=== PATIENT | female | born 1940 | race African-American/Black ===

== ENCOUNTER 2020-04-15 15:08 | Inpatient (IN) | payer BC ==
[~2020-04-15] VITALS: Ht 165.1 cm; Wt 54.1 kg
[2020-04-15 15:08] VITALS: BP 120/66
[2020-04-15] MEDS ORDERED: Dicyclomine HCl 10mg/5ml oral soln ORAL ONE (15:30)
[2020-04-15] MEDS ORDERED: Morphine Sulfate 2mg/ml Inj(IV/IM USE ONLY) IVP ONE (15:30)
[2020-04-15] MEDS ORDERED: Omnipaque-300 100ml vial INJ PRN (15:30)
[2020-04-15] MEDS ORDERED: Mylanta II UD 30ml ORAL ONE (15:30)
[2020-04-15] MEDS ORDERED: Lidocaine 2% Visc 15ml soln ORAL ONE (15:30)
[2020-04-15 16:22] LABS: BASOPHILS % (AUTO) 0.7 % (0.0-2.0); EOSINOPHILS % (AUTO) 0.8 % (0.0-3.0); HEMOGLOBIN 13.4 G/DL (12.0-16.0); LYMPHOCYTES % (AUTO) 13.4 % (20.0-45.0); MEAN CORPUSCULAR VOLUME 94 FL (80-99); MONOCYTES % (AUTO) 3.4 % (1.0-10.0); NEUTROPHILS % (AUTO) 81.8 % (45.0-75.0); PLATELET COUNT 194 K/UL (150-450); RED BLOOD COUNT 4.24 M/UL (4.20-5.40); RED CELL DISTRIBUTION WIDTH 12.1 % (11.6-14.8); WHITE BLOOD COUNT 13.6 K/UL (4.8-10.8)
[2020-04-15 16:41] LABS: ANION GAP 11 mmol/L (5-15); BLOOD UREA NITROGEN 25 mg/dL (7-18); CALCIUM 9.4 MG/DL (8.5-10.1); CARBON DIOXIDE 25 MMOL/L (21-32); CHLORIDE 101 MMOL/L (98-107); CREATININE 1.7 MG/DL (0.55-1.30); POTASSIUM 4.2 MMOL/L (3.5-5.1); SODIUM 137 MMOL/L (136-145)
[2020-04-15] MEDS ORDERED: AMLODIPINE BESYL5 MG ORAL (16:42)
[2020-04-15] MEDS ORDERED: JANUMET 50-5001 EACH ORAL (16:42)
[2020-04-15] MEDS ORDERED: CLOPIDOGREL75 MG ORAL (16:42)
[2020-04-15] MEDS ORDERED: SIMVASTATIN20 MG ORAL (16:42)
[2020-04-15] MEDS ORDERED: ATENOLOL25 MG ORAL (16:42)
[2020-04-15] MEDS ORDERED: LANTUS SOL100 UNIT/1 SUBQ (16:42)
[2020-04-15] MEDS ORDERED: DONEPEZIL HCL5 MG ORAL (16:42)
[2020-04-15] MEDS ORDERED: NAMENDA10 MG ORAL (16:42)
[2020-04-15] MEDS ORDERED: AVAPRO300 MG ORAL (16:42)
[2020-04-15 16:46] LABS: ALANINE AMINOTRANSFERASE 32 U/L (12-78); ALBUMIN 3.8 G/DL (3.4-5.0); ALKALINE PHOSPHATASE 73 U/L (46-116); ASPARTATE AMINO TRANSFERASE 32 U/L (15-37); BILIRUBIN,TOTAL 0.4 MG/DL (0.2-1.0)
[2020-04-15 16:51] LABS: APPEARANCE,URINE CLEAR; BILIRUBIN, URINE NEGATIVE (NEGATIVE); GLUCOSE, URINE (UA) 2+ (NEGATIVE); KETONES,URINE 1+ (NEGATIVE); LEUKOCYTE ESTERASE ,URINE 1+ (NEGATIVE); NITRITE,URINE NEGATIVE (NEGATIVE); PH,URINE 6 (4.5-8.0); PROTEIN,URINE NEGATIVE (NEGATIVE); UROBILINOGEN,URINE NORMAL MG/DL (0.0-1.0)
[2020-04-15 16:53] LABS: COLOR,URINE YELLOW
[2020-04-15 17:00] VITALS: BP 157/67
--- NOTE | 2020-04-15 17:40 | Emergency Room Report ---
History of Present Illness General Chief Complaint: Abdominal Pain Source: Patient Present Illness HPI 79-year-old female presents complaining of abdominal pain. Brought in by EMS from home. Pain started about 30 minutes prior to arrival. Son stated that patient appeared very pale and diaphoretic. Pain is dull, 8 out of 10, nonradiating. Denies fevers or chills. Notes nausea, denies vomiting. Denies sick contacts or recent travel. No other aggravating relieving factors. Denies any other associated symptoms Allergies: Coded Allergies: No Known Allergies (Unverified , 04/15/20) COVID-19 Screening Contact w/high risk pt: No Experienced COVID-19 symptoms?: No COVID-19 Testing performed RN ACUTE CARE: No Patient History Past Medical History: DM, HTN Past Surgical History: none Pertinent Family History: none Social History: Denies: smoking, alcohol use, drug use Now: No Immunizations: UTD Reviewed Nursing Documentation: PMH: Agreed; PSxH: Agreed Nursing Documentation-PMH Hx Hypertension: Yes - high cholesterol Hx Diabetes: Yes Review of Systems All Other Systems: negative except mentioned in HPI Physical Exam Vital Signs Date Time Temp Pulse Resp B/P (MAP) Pulse Ox O2 Delivery O2 Flow Rate FiO2 04/15/20 14:57 97.5 52 12 120/66 (84) 98 Room Air Sp02 EP Interpretation: reviewed, normal General Appearance: no apparent distress, alert, GCS 15, non-toxic Head: normocephalic, atraumatic Eyes: bilateral eye normal inspection, bilateral eye PERRL ENT: hearing grossly normal, normal pharynx, no angioedema, normal voice Neck: full range of motion, supple/symm/no masses Respiratory: chest non-tender, lungs clear, normal breath sounds, speaking full sentences Cardiovascular #1: regular rate, rhythm, no edema Cardiovascular #2: 2+ carotid (R), 2+ carotid (L), 2+ radial (R), 2+ radial (L) , 2+ dorsalis pedis (R), 2+ dorsalis pedis (L) Gastrointestinal: normal bowel sounds, soft, non-distended, no guarding, no rebound, tenderness Rectal: deferred Genitourinary: normal inspection, no CVA tenderness Musculoskeletal: back normal, normal range of motion, gait/station normal, non- tender Neurologic: alert, motor strength/tone normal, oriented x3, sensory intact, responsive, speech normal Psychiatric: judgement/insight normal, memory normal, mood/affect normal, no suicidal/homicidal ideation Reflexes: 3+ bicep (R), 3+ bicep (L), 3+ tricep (R), 3+ tricep (L), 3+ knee (R) , 3+ knee (L) Skin: other - see nursing sno Lymphatic: no adenopathy Medical Decision Making Diagnostic Impression: Primary Impression: Renal insufficiency Additional Impression: Abdominal pain Qualified Codes: R10.84 - Generalized abdominal pain ER Course Hospital Course 79 yo F presents to ED c/o abd pain, weakness, diaphroetic Differential diagnoses include: BPH, cystitis, pyelonephritis, kidney stone Clinical course Patient placed on stretcher. 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 After initial history and physical I ordered labs, IV fluids, UA, pain medication and CT scan Labs - noted leukocytosis, Hb/Hct stable. BUN/Cr elevagted, UA negative CT abdomen and pelvis - hiatal hernia, distal esophagitis IV hydration continued Case discussed with Dr. patten and he agreed to accept the patient to his service for further care and support I feel this is a highly complex case requiring extensive working including EKG/ Rhythm strip, Xray/CT/US, Blood/urine lab work, repeat exams while in ED, and administration of strong opiates/narcotics for pain control, admission to hospital or close patient follow up. Diagnosis - renal insufficieny, abdominal pain Patient admitted to floor in serious condition Laboratory Tests Test 04/15/20 15:45 04/15/20 16:35 White Blood Count 13.6 K/UL (4.8-10.8) H Red Blood Count 4.24 M/UL (4.20-5.40) Hemoglobin 13.4 G/DL (12.0-16.0) Hematocrit 40.0 % (37.0-47.0) Mean Corpuscular Volume 94 FL (80-99) Mean Corpuscular Hemoglobin 31.6 PG (27.0-31.0) H Mean Corpuscular Hemoglobin Concent 33.4 G/DL (32.0-36.0) Red Cell Distribution Width 12.1 % (11.6-14.8) Platelet Count 194 K/UL (150-450) Mean Platelet Volume 8.5 FL (6.5-10.1) Neutrophils (%) (Auto) 81.8 % (45.0-75.0) H Lymphocytes (%) (Auto) 13.4 % (20.0-45.0) L Monocytes (%) (Auto) 3.4 % (1.0-10.0) Eosinophils (%) (Auto) 0.8 % (0.0-3.0) Basophils (%) (Auto) 0.7 % (0.0-2.0) Sodium Level 137 MMOL/L (136-145) Potassium Level 4.2 MMOL/L (3.5-5.1) Chloride Level 101 MMOL/L (98-107) Carbon Dioxide Level 25 MMOL/L (21-32) Anion Gap 11 mmol/L (5-15) Blood Urea Nitrogen 25 mg/dL (7-18) H Creatinine 1.7 MG/DL (0.55-1.30) H Estimat Glomerular Filtration Rate 35.3 mL/min (>60) Glucose Level 234 MG/DL (74-106) H Calcium Level 9.4 MG/DL (8.5-10.1) Total Bilirubin 0.4 MG/DL (0.2-1.0) Aspartate Amino Transf (AST/SGOT) 32 U/L (15-37) Alanine Aminotransferase (ALT/SGPT) 32 U/L (12-78) Alkaline Phosphatase 73 U/L (46-116) Total Protein 7.7 G/DL (6.4-8.2) Albumin 3.8 G/DL (3.4-5.0) Globulin 3.9 g/dL Albumin/Globulin Ratio 1.0 (1.0-2.7) Lipase 260 U/L (73-393) Urine Color Yellow Urine Appearance Clear Urine pH 6 (4.5-8.0) Urine Specific [place] 1.015 (1.005-1.035) Urine Protein Negative (NEGATIVE) Urine Glucose (UA) 2+ (NEGATIVE) H Urine Ketones 1+ (NEGATIVE) H Urine Blood Negative (NEGATIVE) Urine Nitrite Negative (NEGATIVE) Urine Bilirubin Negative (NEGATIVE) Urine Urobilinogen Normal MG/DL (0.0-1.0) Urine Leukocyte Esterase 1+ (NEGATIVE) H Urine RBC 0-2 /HPF (0 - 2) Urine WBC 0-2 /HPF (0 - 2) Urine Squamous Epithelial Cells Few /LPF (NONE/OCC) Urine Bacteria Few /HPF (NONE) CT/MRI/US Diagnostic Results CT/MRI/US Diagnostic Results : Imaging Test Ordered: CT A/P Impression Procedure: CT Abdomen Pelvis WO Contrast EXAM: CT Abdomen and Pelvis With Intravenous Contrast CLINICAL HISTORY: ABD PAIN TECHNIQUE: Axial computed tomography images of the abdomen and pelvis with intravenous contrast. CTDI is 4.50 mGy and DLP is 213.60 mGy-cm. One or more of the following dose reduction techniques were used: automated exposure control, adjustment of the mA and/or kV according to patient size, use of iterative reconstruction technique. COMPARISON: 06/27/2004. FINDINGS: Limitations: Evaluation of the viscera is limited due to lack of oral and intravenous contrast administration. Lung bases: Probable mild COPD is suggested at the lung bases. Mediastinum: Probable distal esophagitis. Small hiatal hernia. ABDOMEN: Liver: The liver and the spleen are normal in contour. Gallbladder and bile ducts: See below. Pancreas: The head, body, tail of the pancreas and the gallbladder are unremarkable. No ductal dilation. Spleen: See above. Adrenals: A 1.5 cm probable left adrenal adenoma. No follow-up is advised. Right adrenal gland is unremarkable. Kidneys and ureters: No renal calculus or hydronephrosis. Minimal nonspecific stranding about the perinephric spaces. 0.2 cm nonobstructing calculus lower pole region of the right kidney. Stomach and bowel: Moderate quantity of stool throughout the colon. No evidence of bowel obstruction. No mucosal thickening. PELVIS: Appendix: No findings to suggest acute appendicitis. Bladder: The bladder is underdistended but unremarkable. Reproductive: The patient is status post hysterectomy. ABDOMEN and PELVIS: Intraperitoneal space: Unremarkable. No free air. No significant fluid collection. Bones/joints: Moderate to severe degenerative disc disease of the thoracolumbar spine. Moderate osteoarthritic changes about the sacroiliac joints. There is grade 1 retrolisthesis of L2 upon L3 vertebral body. The sacrum and coccyx are unremarkable. No acute fracture. No dislocation. Soft tissues: Ischiorectal fat is clean. Vasculature: Atherosclerotic disease of the abdominal aorta extending to the common iliac arteries. Pelvic phleboliths. Lymph nodes: No retroperitoneal lymphadenopathy. No pelvic or inguinal lymphadenopathy. Other findings: Multilevel vacuum disks. IMPRESSION: 1. Hiatal hernia. 2. Probable distal esophagitis. 3. The gallbladder is unremarkable. 4. No renal calculus or hydronephrosis peered 5. Very minimal nonspecific stranding about the perinephric spaces. 6. No evidence of bowel obstruction. 7. No active inflammatory process. Last Vital Signs Date Time Temp Pulse Resp B/P (MAP) Pulse Ox O2 Delivery O2 Flow Rate FiO2 04/15/20 16:22 97.5 04/15/20 15:08 52 12 120/66 98 Room Air Status: improved Disposition: ADMITTED INPATIENT Condition: Serious Referrals: NON PHYSICIAN (PCP) Silver Valverde MD Apr 15, 2020 17:40
[2020-04-15 18:00] VITALS: BP 118/65
[2020-04-15] MEDS ORDERED: Miralax 17gm pkt ORAL PRN (18:00)
--- NOTE | 2020-04-15 18:14 | Diagnostic Imaging Report ---
EXAM: CT Abdomen and Pelvis With Intravenous Contrast CLINICAL HISTORY: ABD PAIN TECHNIQUE: Axial computed tomography images of the abdomen and pelvis with intravenous contrast. CTDI is 4.50 mGy and DLP is 213.60 mGy-cm. One or more of the following dose reduction techniques were used: automated exposure control, adjustment of the mA and/or kV according to patient size, use of iterative reconstruction technique. COMPARISON: 06/27/2004. FINDINGS: Limitations: Evaluation of the viscera is limited due to lack of oral and intravenous contrast administration. Lung bases: Probable mild COPD is suggested at the lung bases. Mediastinum: Probable distal esophagitis. Small hiatal hernia. ABDOMEN: Liver: The liver and the spleen are normal in contour. Gallbladder and bile ducts: See below. Pancreas: The head, body, tail of the pancreas and the gallbladder are unremarkable. No ductal dilation. Spleen: See above. Adrenals: A 1.5 cm probable left adrenal adenoma. No follow-up is advised. Right adrenal gland is unremarkable. Kidneys and ureters: No renal calculus or hydronephrosis. Minimal nonspecific stranding about the perinephric spaces. 0.2 cm nonobstructing calculus lower pole region of the right kidney. Stomach and bowel: Moderate quantity of stool throughout the colon. No evidence of bowel obstruction. No mucosal thickening. PELVIS: Appendix: No findings to suggest acute appendicitis. Bladder: The bladder is underdistended but unremarkable. Reproductive: The patient is status post hysterectomy. ABDOMEN and PELVIS: Intraperitoneal space: Unremarkable. No free air. No significant fluid collection. Bones/joints: Moderate to severe degenerative disc disease of the thoracolumbar spine. Moderate osteoarthritic changes about the sacroiliac joints. There is grade 1 retrolisthesis of L2 upon L3 vertebral body. The sacrum and coccyx are unremarkable. No acute fracture. No dislocation. Soft tissues: Ischiorectal fat is clean. Vasculature: Atherosclerotic disease of the abdominal aorta extending to the common iliac arteries. Pelvic phleboliths. Lymph nodes: No retroperitoneal lymphadenopathy. No pelvic or inguinal lymphadenopathy. Other findings: Multilevel vacuum disks. IMPRESSION: 1. Hiatal hernia. 2. Probable distal esophagitis. 3. The gallbladder is unremarkable. 4. No renal calculus or hydronephrosis peered 5. Very minimal nonspecific stranding about the perinephric spaces. 6. No evidence of bowel obstruction. 7. No active inflammatory process.
[2020-04-15 18:45] LABS: CREATINE KINASE 212 U/L (26-308)
[2020-04-15 20:00] VITALS: BP 143/70
[2020-04-15] MEDS: Heparin 5000 units/ml inj SUBQ SCH (20:41)
[2020-04-15] MEDS: NovoLOG Insulin Flexpen SUBQ SCH (21:15)
[2020-04-16] VITALS: BP 145/68
[2020-04-16] MEDS: Zolpidem 5mg tab ORAL PRN ×2 (03:42→21:26)
[2020-04-16 04:00] VITALS: BP 125/61
[2020-04-16] MEDS: NovoLOG Insulin Flexpen SUBQ SCH ×4 (06:30→21:30)
[2020-04-16 06:45] LABS: BASOPHILS % (AUTO) 0.7 % (0.0-2.0); HEMATOCRIT 40.4 % (37.0-47.0); HEMOGLOBIN 13.4 G/DL (12.0-16.0); MEAN CORPUSCULAR VOLUME 94 FL (80-99); MONOCYTES % (AUTO) 6.3 % (1.0-10.0); PLATELET COUNT 187 K/UL (150-450); RED BLOOD COUNT 4.29 M/UL (4.20-5.40); RED CELL DISTRIBUTION WIDTH 11.4 % (11.6-14.8); WHITE BLOOD COUNT 12.3 K/UL (4.8-10.8)
[2020-04-16 06:55] LABS: ALANINE AMINOTRANSFERASE 32 U/L (12-78); ALBUMIN 3.4 G/DL (3.4-5.0); ALBUMIN/GLOBULIN RATIO 0.9 (1.0-2.7); ALKALINE PHOSPHATASE 63 U/L (46-116); ANION GAP 7 mmol/L (5-15); ASPARTATE AMINO TRANSFERASE 25 U/L (15-37); BILIRUBIN,TOTAL 0.7 MG/DL (0.2-1.0); BLOOD UREA NITROGEN 25 mg/dL (7-18); CALCIUM 8.9 MG/DL (8.5-10.1); CARBON DIOXIDE 27 MMOL/L (21-32); CHLORIDE 104 MMOL/L (98-107); CHOLESTEROL 175 MG/DL (< 200); CREATININE 1.5 MG/DL (0.55-1.30); HDL CHOLESTEROL 58 MG/DL (40-60); POTASSIUM 4.3 MMOL/L (3.5-5.1); SODIUM 138 MMOL/L (136-145); TRIGLYCERIDES 80 MG/DL (30-150)
[2020-04-16 07:06] LABS: CREATINE KINASE 124 U/L (26-308)
[2020-04-16 08:00] VITALS: BP 153/75
[2020-04-16 08:37] LABS: PHOSPHORUS 3.8 MG/DL (2.5-4.9)
--- NOTE | 2020-04-16 09:05 | Consultation ---
Consult Note Consult Note I am asked to evaluate the patient at the request of Dr pattenfor renal failure. Patient seen in room 411. Patient interviewed. Patient poor historian. Patient examined. Data reviewed. First hospitalization here at [facility] Emergency room note: Chief Complaint: Abdominal Pain Source: Patient 79-year-old female presents complaining of abdominal pain. Brought in by EMS from home. Pain started about 30 minutes prior to arrival. Son stated that patient appeared very pale and diaphoretic. Pain is dull, 8 out of 10, nonradiating. Denies fevers or chills. Notes nausea, denies vomiting. Denies sick contacts or recent travel. No other aggravating relieving factors. 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: No Past Medical History: DM, HTN Hx Hypertension: Yes - high cholesterol Hx Diabetes: Yes Vital Signs Date Time Temp Pulse Resp B/P (MAP) Pulse Ox O2 Delivery O2 Flow Rate FiO2 04/15/20 14:57 97.5 52 12 120/66 (84) 98 Room Air Sp02 EP Interpretation: reviewed, normal General Appearance: thin Lines, tubes and drains: peripheral HEENT: normocephalic, atraumatic Neck: supple Respiratory/Chest: chest wall non-tender, lungs clear, normal breath sounds Breasts: no masses Cardiovascular/Chest: regular rhythm Abdomen: normal bowel sounds Genitourinary/Rectal: normal genital exam, heme negative stool Extremities: normal range of motion . Assessment/Plan Renal failure most likely acute on chronic Diabetes mellitus [id number] Hypertension History of dementia Possible UTI Slow hydration Urine for culture and sensitivity Blood pressure medication Keep the blood sugar in check Patient currently n.p.o. due to abdominal pain, will start IV Protonix. Continue per GI advice. Check TSH and troponin I CT scan of the abdomen and pelvis: IMPRESSION: 1. Hiatal hernia. 2. Probable distal esophagitis. 3. The gallbladder is unremarkable. 4. No renal calculus or hydronephrosis 5. Very minimal nonspecific stranding about the perinephric spaces. 6. No evidence of bowel obstruction. 7. No active inflammatory process. I spent an additional 36 minutes on review of medical records including prior hospital records,consult notes, progress notes, procedures ,imaging labs, hemodynamics, and other clinical documentation. Over 35 min Manuel Nelson MD Apr 16, 2020 09:05
[2020-04-16] MEDS: Docusate 100mg cap ORAL SCH ×2 (09:22→17:06)
[2020-04-16] MEDS: Pantoprazole Inj IVP SCH ×2 (09:23→21:28)
[2020-04-16] MEDS: Heparin 5000 units/ml inj SUBQ SCH ×2 (09:45→21:28)
[2020-04-16 12:00] VITALS: BP 152/74
--- NOTE | 2020-04-16 12:47 | General Progress Note ---
Assessment/Plan Assessment/Plan: abd pain Hiatal hernia Esophagitis DM elevated trop ppi dc pepcid on plavix CT reviewed start diet plan EGD tomorrow Subjective ROS Limited/Unobtainable: Yes Allergies: Coded Allergies: No Known Allergies (Unverified , 04/15/20) Objective Last 24 Hour Vital Signs Date Time Temp Pulse Resp B/P (MAP) Pulse Ox O2 Delivery O2 Flow Rate FiO2 04/16/20 12:00 97.7 56 18 152/74 (100) 96 04/16/20 09:22 59 153/75 04/16/20 09:00 Room Air 04/16/20 08:00 97.8 59 18 153/75 (101) 96 04/16/20 04:00 97.5 65 16 125/61 (82) 97 04/16/20 00:00 97.9 79 17 145/68 (93) 96 04/15/20 21:00 Room Air 04/15/20 20:00 98.3 94 18 143/70 (94) 97 04/15/20 19:12 Room Air 04/15/20 18:30 97.5 75 18 120/69 96 Room Air 04/15/20 18:00 97.5 71 19 118/65 99 Room Air 04/15/20 17:00 97.5 68 15 157/67 100 Room Air 04/15/20 16:22 97.5 04/15/20 15:08 97.5 52 12 120/66 98 Room Air 04/15/20 15:08 52 12 Room Air 04/15/20 14:57 97.5 52 12 120/66 (84) 98 Room Air Intake and Output 04/15/20 04/16/20 19:00 07:00 Intake Total 1000 ml 750 ml Balance 1000 ml 750 ml Intake IV Total 1000 ml 750 ml # Voids 3 3 Laboratory Tests 04/15/20 15:45: White Blood Count 13.6H, Red Blood Count 4.24, Hemoglobin 13.4, Hematocrit 40.0 , Mean Corpuscular Volume 94, Mean Corpuscular Hemoglobin 31.6H, Mean Corpuscular Hemoglobin Concent 33.4, Red Cell Distribution Width 12.1, Platelet Count 194, Mean Platelet Volume 8.5, Neutrophils (%) (Auto) 81.8H, Lymphocytes ( %) (Auto) 13.4L, Monocytes (%) (Auto) 3.4, Eosinophils (%) (Auto) 0.8, Basophils (%) (Auto) 0.7, Sodium Level 137, Potassium Level 4.2, Chloride Level 101, Carbon Dioxide Level 25, Anion Gap 11, Blood Urea Nitrogen 25H, Creatinine 1.7H, Estimat Glomerular Filtration Rate 35.3, Glucose Level 234H, Uric Acid 5.2 , Calcium Level 9.4, Total Bilirubin 0.4, Aspartate Amino Transf (AST/SGOT) 32, Alanine Aminotransferase (ALT/SGPT) 32, Alkaline Phosphatase 73, Total Creatine Kinase 212, Total Protein 7.7, Albumin 3.8, Globulin 3.9, Albumin/Globulin Ratio 1.0, Lipase 260 04/15/20 16:35: Urine Color Yellow, Urine Appearance Clear, Urine pH 6, Urine Specific [place] 1.015, Urine Protein Negative, Urine Glucose (UA) 2+H, Urine Ketones 1+H, Urine Blood Negative, Urine Nitrite Negative, Urine Bilirubin Negative, Urine Urobilinogen Normal, Urine Leukocyte Esterase 1+H, Urine RBC 0-2, Urine WBC 0-2 , Urine Squamous Epithelial Cells Few, Urine Bacteria Few, Urine Eosinophils None seen, Urine Random Creatinine [Pending], Urine Random Microalbumin [Pending ], Urine Random Sodium 121H, Urine Microalbumin/Creatinine Ratio [Pending] 04/15/20 20:38: POC Whole Blood Glucose [Pending] 04/16/20 06:00: White Blood Count 12.3H, Red Blood Count 4.29, Hemoglobin 13.4, Hematocrit 40.4 , Mean Corpuscular Volume 94, Mean Corpuscular Hemoglobin 31.1H, Mean Corpuscular Hemoglobin Concent 33.1, Red Cell Distribution Width 11.4L, Platelet Count 187, Mean Platelet Volume 7.9, Neutrophils (%) (Auto) 76.0H, Lymphocytes (%) (Auto) 17.0L, Monocytes (%) (Auto) 6.3, Eosinophils (%) (Auto) 0.0, Basophils (%) (Auto) 0.7, Sodium Level 138, Potassium Level 4.3, Chloride Level 104, Carbon Dioxide Level 27, Anion Gap 7, Blood Urea Nitrogen 25H, Creatinine 1.5H, Estimat Glomerular Filtration Rate 40.7, Glucose Level 218H, Uric Acid 4.8, Calcium Level 8.9, Total Bilirubin 0.7, Aspartate Amino Transf ( AST/SGOT) 25, Alanine Aminotransferase (ALT/SGPT) 32, Alkaline Phosphatase 63, Total Creatine Kinase 124, Total Protein 7.3, Albumin 3.4, Globulin 3.9, Albumin /Globulin Ratio 0.9L, Hemoglobin A1c 8.0H, Phosphorus Level 3.8, Magnesium Level 2.2, Troponin I 0.069H, Triglycerides Level 80, Cholesterol Level 175, LDL Cholesterol 105H, HDL Cholesterol 58, Cholesterol/HDL Ratio 3.0L, Thyroid Stimulating Hormone (TSH) 0.296L Height (Feet): 5 Height (Inches): 0.00 Weight (Pounds): 115 General Appearance: alert EENT: normal ENT inspection Neck: supple Cardiovascular: normal rate Respiratory/Chest: decreased breath sounds Abdomen: normal bowel sounds, non tender, soft Extremities: non-tender Dre Umana MD Apr 16, 2020 12:47
--- NOTE | 2020-04-16 13:05 | History and Physical ---
History of Present Illness General Date patient seen: Apr 16, 2020 Reason for Hospitalization: Abdominal Pain Present Illness HPI 79-year-old female with hx of DM, HTN, dementia, CVA presented to ER from her primary care physicians office with cc of of abdominal pain, started about 30 minutes prior to arrival. Son stated that patient appeared very pale and diaphoretic. Pain is dull, 8 out of 10, nonradiating. Denies fevers or chills. Notes nausea, denies vomiting. Denies sick contacts or recent travel. Patient was found to be in renal failure and is admitted further investigation. Allergies: Coded Allergies: No Known Allergies (Unverified , 04/15/20) COVID-19 Screening Contact w/high risk pt: No Experienced COVID-19 symptoms?: No Medication History Scheduled Atenolol* (Tenormin*), 25 MG ORAL DAILY, (Reported) Clopidogrel* (Clopidogrel*), 75 MG ORAL DAILY, (Reported) Donepezil Hcl* (Donepezil Hcl*), 5 MG ORAL DAILY, (Reported) Insulin Glargine (Lantus), 0 SUBQ BEDTIME, (Reported) Irbesartan* (Avapro*), 300 MG ORAL DAILY, (Reported) Memantine Hcl* (Namenda*), 7 MG ORAL DAILY, (Reported) Simvastatin (Zocor), 20 MG ORAL BEDTIME, (Reported) Miscellaneous Medications Amlodipine Besylate* (Amlodipine Besylate*), 5 MG ORAL, (Reported) Sitagliptin Phos/Metformin Hcl (Janumet 50-500 Mg Tablet), 1 TAB ORAL, (Reported ) Patient History Healthcare decision maker Resuscitation status Advanced Directive on File Past Medical/Surgical History Past Medical/Surgical History: (1) History of CVA (cerebrovascular accident) (2) History of hypertension (3) History of diabetes mellitus Review of Systems All Other Systems: negative except mentioned in HPI Physical Exam General Appearance: thin Lines, tubes and drains: peripheral HEENT: normocephalic, atraumatic Neck: supple Respiratory/Chest: chest wall non-tender, lungs clear, normal breath sounds Breasts: no masses Cardiovascular/Chest: regular rhythm Abdomen: normal bowel sounds Genitourinary/Rectal: normal genital exam, heme negative stool Extremities: normal range of motion Last 24 Hour Vital Signs Date Time Temp Pulse Resp B/P (MAP) Pulse Ox O2 Delivery O2 Flow Rate FiO2 04/16/20 12:00 97.7 56 18 152/74 (100) 96 04/16/20 09:22 59 153/75 04/16/20 09:00 Room Air 04/16/20 08:00 97.8 59 18 153/75 (101) 96 04/16/20 04:00 97.5 65 16 125/61 (82) 97 04/16/20 00:00 97.9 79 17 145/68 (93) 96 04/15/20 21:00 Room Air 04/15/20 20:00 98.3 94 18 143/70 (94) 97 04/15/20 19:12 Room Air 04/15/20 18:30 97.5 75 18 120/69 96 Room Air 04/15/20 18:00 97.5 71 19 118/65 99 Room Air 04/15/20 17:00 97.5 68 15 157/67 100 Room Air 04/15/20 16:22 97.5 04/15/20 15:08 97.5 52 12 120/66 98 Room Air 04/15/20 15:08 52 12 Room Air 04/15/20 14:57 97.5 52 12 120/66 (84) 98 Room Air Intake and Output 04/15/20 04/16/20 19:00 07:00 Intake Total 1000 ml 750 ml Balance 1000 ml 750 ml Intake IV Total 1000 ml 750 ml # Voids 3 3 Laboratory Tests Test 04/15/20 15:45 04/15/20 16:35 04/15/20 20:38 04/16/20 06:00 White Blood Count 13.6 K/UL (4.8-10.8) H 12.3 K/UL (4.8-10.8) H Red Blood Count 4.24 M/UL (4.20-5.40) 4.29 M/UL (4.20-5.40) Hemoglobin 13.4 G/DL (12.0-16.0) 13.4 G/DL (12.0-16.0) Hematocrit 40.0 % (37.0-47.0) 40.4 % (37.0-47.0) Mean Corpuscular Volume 94 FL (80-99) 94 FL (80-99) Mean Corpuscular Hemoglobin 31.6 PG (27.0-31.0) H 31.1 PG (27.0-31.0) H Mean Corpuscular Hemoglobin Concent 33.4 G/DL (32.0-36.0) 33.1 G/DL (32.0-36.0) Red Cell Distribution Width 12.1 % (11.6-14.8) 11.4 % (11.6-14.8) L Platelet Count 194 K/UL (150-450) 187 K/UL (150-450) Mean Platelet Volume 8.5 FL (6.5-10.1) 7.9 FL (6.5-10.1) Neutrophils (%) (Auto) 81.8 % (45.0-75.0) H 76.0 % (45.0-75.0) H Lymphocytes (%) (Auto) 13.4 % (20.0-45.0) L 17.0 % (20.0-45.0) L Monocytes (%) (Auto) 3.4 % (1.0-10.0) 6.3 % (1.0-10.0) Eosinophils (%) (Auto) 0.8 % (0.0-3.0) 0.0 % (0.0-3.0) Basophils (%) (Auto) 0.7 % (0.0-2.0) 0.7 % (0.0-2.0) Sodium Level 137 MMOL/L (136-145) 138 MMOL/L (136-145) Potassium Level 4.2 MMOL/L (3.5-5.1) 4.3 MMOL/L (3.5-5.1) Chloride Level 101 MMOL/L (98-107) 104 MMOL/L (98-107) Carbon Dioxide Level 25 MMOL/L (21-32) 27 MMOL/L (21-32) Anion Gap 11 mmol/L (5-15) 7 mmol/L (5-15) Blood Urea Nitrogen 25 mg/dL (7-18) H 25 mg/dL (7-18) H Creatinine 1.7 MG/DL (0.55-1.30) H 1.5 MG/DL (0.55-1.30) H Estimat Glomerular Filtration Rate 35.3 mL/min (>60) 40.7 mL/min (>60) Glucose Level 234 MG/DL (74-106) H 218 MG/DL (74-106) H Uric Acid 5.2 MG/DL (2.6-7.2) 4.8 MG/DL (2.6-7.2) Calcium Level 9.4 MG/DL (8.5-10.1) 8.9 MG/DL (8.5-10.1) Total Bilirubin 0.4 MG/DL (0.2-1.0) 0.7 MG/DL (0.2-1.0) Aspartate Amino Transf (AST/SGOT) 32 U/L (15-37) 25 U/L (15-37) Alanine Aminotransferase (ALT/SGPT) 32 U/L (12-78) 32 U/L (12-78) Alkaline Phosphatase 73 U/L (46-116) 63 U/L (46-116) Total Creatine Kinase 212 U/L (26-308) 124 U/L (26-308) Total Protein 7.7 G/DL (6.4-8.2) 7.3 G/DL (6.4-8.2) Albumin 3.8 G/DL (3.4-5.0) 3.4 G/DL (3.4-5.0) Globulin 3.9 g/dL 3.9 g/dL Albumin/Globulin Ratio 1.0 (1.0-2.7) 0.9 (1.0-2.7) L Lipase 260 U/L (73-393) Urine Color Yellow Urine Appearance Clear Urine pH 6 (4.5-8.0) Urine Specific [place] 1.015 (1.005-1.035) Urine Protein Negative (NEGATIVE) Urine Glucose (UA) 2+ (NEGATIVE) H Urine Ketones 1+ (NEGATIVE) H Urine Blood Negative (NEGATIVE) Urine Nitrite Negative (NEGATIVE) Urine Bilirubin Negative (NEGATIVE) Urine Urobilinogen Normal MG/DL (0.0-1.0) Urine Leukocyte Esterase 1+ (NEGATIVE) H Urine RBC 0-2 /HPF (0 - 2) Urine WBC 0-2 /HPF (0 - 2) Urine Squamous Epithelial Cells Few /LPF (NONE/OCC) Urine Bacteria Few /HPF (NONE) Urine Eosinophils None seen (NONE SEEN) Urine Random Creatinine Pending Urine Random Microalbumin Pending Urine Random Sodium 121 mmol/L (20-110) H Urine Microalbumin/Creatinine Ratio Pending POC Whole Blood Glucose Pending Hemoglobin A1c 8.0 % (4.3-6.0) H Phosphorus Level 3.8 MG/DL (2.5-4.9) Magnesium Level 2.2 MG/DL (1.8-2.4) Troponin I 0.069 ng/mL (0.000-0.056) Triglycerides Level 80 MG/DL (30-150) Cholesterol Level 175 MG/DL (< 200) LDL Cholesterol 105 mg/dL (<100) H HDL Cholesterol 58 MG/DL (40-60) Cholesterol/HDL Ratio 3.0 (3.3-4.4) L Thyroid Stimulating Hormone (TSH) 0.296 uiU/mL (0.358-3.740) Height (Feet): 5 Height (Inches): 0.00 Weight (Pounds): 115 Medications Current Medications Medications (Trade) Dose Ordered Sig/Amada Route PRN Reason Start Time Stop Time Status Last Admin Dose Admin Acetaminophen (Tylenol) 650 mg Q4H PRN ORAL fever 04/15/20 18:00 05/15/20 17:59 Amlodipine Besylate (Norvasc) 5 mg DAILY ORAL 04/16/20 09:15 05/16/20 09:14 04/16/20 09:22 Clopidogrel Bisulfate (Plavix) 75 mg DAILY ORAL 04/16/20 09:15 05/16/20 09:14 04/16/20 09:22 Dextrose (Dextrose 50%) 25 ml Q30M PRN IV Hypoglycemia 04/15/20 18:00 07/14/20 17:59 Dextrose (Dextrose 50%) 50 ml Q30M PRN IV Hypoglycemia 04/15/20 18:00 07/14/20 17:59 Docusate Sodium (Colace) 100 mg TWICE A DAY ORAL 04/16/20 09:15 05/16/20 09:14 04/16/20 09:22 Heparin Sodium (Porcine) (Heparin 5000 units/ml) 5,000 units EVERY 12 HOURS SUBQ 04/15/20 21:00 05/30/20 20:59 04/16/20 09:45 Insulin Aspart (NovoLOG) BEFORE MEALS AND HS SUBQ 04/15/20 21:00 07/14/20 20:59 04/16/20 11:31 Iohexol (OMNIPAQUE-300 100ml) 100 ml NOW PRN INJ Radiology Procedure 04/15/20 15:30 04/17/20 15:29 Ondansetron HCl (Zofran) 4 mg Q6H PRN IVP Nausea & Vomiting 04/15/20 18:00 05/15/20 17:59 Pantoprazole (Protonix) 40 mg EVERY 12 HOURS IVP 04/16/20 09:15 05/16/20 09:14 04/16/20 09:23 Polyethylene Glycol (Miralax) 17 gm HSPRN PRN ORAL Constipation 04/15/20 18:00 05/15/20 17:59 Sodium Chloride 1,000 ml @ 75 mls/hr [id number] IV 04/15/20 20:00 05/15/20 19:59 04/16/20 09:23 Zolpidem Tartrate (Ambien) 5 mg HSPRN PRN ORAL Insomnia 04/15/20 18:00 04/22/20 17:59 04/16/20 03:42 Assessment/Plan Problem List: (1) Intractable abdominal pain ICD Codes: R10.9 - Unspecified abdominal pain SNOMED: 97640353 (2) Acute dehydration ICD Codes: E86.0 - Dehydration SNOMED: 1804028, 30912876 (3) History of diabetes mellitus ICD Codes: Z86.39 - Personal history of other endocrine, nutritional and metabolic disease SNOMED: 663943336 (4) History of hypertension ICD Codes: Z86.79 - Personal history of other diseases of the circulatory system SNOMED: 424675006 (5) History of CVA (cerebrovascular accident) ICD Codes: Z86.73 - Personal history of transient ischemic attack (TIA), and cerebral infarction without residual deficits SNOMED: 207505301 Assessment/Plan: NPO GI evaluation iv fluids sliding scale urine analysis and electrolytes, including Na monitor BP dvt prophylaxis. Bob Rasheed MD Apr 16, 2020 13:05
--- NOTE | 2020-04-16 13:58 | Diagnostic Imaging Report ---
EXAM: ULTRASOUND US Renal Comp CLINICAL HISTORY: Reason For Exam: ABD PAIN. COMPARISON: None TECHNIQUE: Ultrasound examination of the kidneys includes grayscale images, and color and spectral doppler analysis. FINDINGS: The right kidney measures 10.5 x 5.1 x 5.1 cm and the left kidney measures 9.3 x 4.6 x 4.6 cm. Mild cortical thinning noted in both kidneys. The cortex also mildly echogenic. There is no hydronephrosis or stone seen bilaterally. Urinary bladder appears unremarkable. IMPRESSION: BILATERAL CORTICAL THINNING AND INCREASED CORTICAL ECHOGENICITY REFLECTING MEDICAL RENAL DISEASE. NO OBSTRUCTIVE UROPATHY.
[2020-04-16 16:00] VITALS: BP 145/76
[2020-04-16 20:00] VITALS: BP 148/73
[2020-04-17] VITALS (12 sets, daily range): BP systolic 119–156; BP diastolic 60–77
[2020-04-17] MEDS: NovoLOG Insulin Flexpen SUBQ SCH ×4 (06:30→21:51)
[2020-04-17 07:25] LABS: ALANINE AMINOTRANSFERASE 31 U/L (12-78); ALBUMIN 3.3 G/DL (3.4-5.0); ALBUMIN/GLOBULIN RATIO 0.8 (1.0-2.7); ALKALINE PHOSPHATASE 58 U/L (46-116); AMYLASE 66 U/L (25-115); ANION GAP 7 mmol/L (5-15); ASPARTATE AMINO TRANSFERASE 26 U/L (15-37); BILIRUBIN,TOTAL 0.5 MG/DL (0.2-1.0); BLOOD UREA NITROGEN 20 mg/dL (7-18); CALCIUM 8.7 MG/DL (8.5-10.1); CARBON DIOXIDE 27 MMOL/L (21-32); CHLORIDE 106 MMOL/L (98-107); CREATININE 1.4 MG/DL (0.55-1.30); PHOSPHORUS 2.9 MG/DL (2.5-4.9); POTASSIUM 4.2 MMOL/L (3.5-5.1); SODIUM 140 MMOL/L (136-145)
[2020-04-17 07:27] LABS: BASOPHILS % (AUTO) 0.7 % (0.0-2.0); EOSINOPHILS % (AUTO) 0.9 % (0.0-3.0); HEMATOCRIT 39.1 % (37.0-47.0); LYMPHOCYTES % (AUTO) 24.1 % (20.0-45.0); MEAN CORPUSCULAR VOLUME 94 FL (80-99); MONOCYTES % (AUTO) 5.7 % (1.0-10.0); NEUTROPHILS % (AUTO) 68.6 % (45.0-75.0); PLATELET COUNT 180 K/UL (150-450); RED BLOOD COUNT 4.14 M/UL (4.20-5.40); RED CELL DISTRIBUTION WIDTH 11.5 % (11.6-14.8); WHITE BLOOD COUNT 9.6 K/UL (4.8-10.8)
--- NOTE | 2020-04-17 07:30 | Consultation ---
DATE OF CONSULTATION: 04/17/2020 ENDOCRINOLOGY CONSULTATION CONSULTING PHYSICIAN: Kaz Castorena MD. REFERRING PHYSICIAN: Bob Rasheed MD. REASON FOR CONSULTATION: Diabetes management and abnormal thyroid function tests. HISTORY OF PRESENT ILLNESS: Patient is a 79-year-old female who presented to the hospital after abdominal pain started about 30 minutes prior to arrival. Patient appeared pale and diaphoretic. Pain was 8/10 without any radiation. No fever. No chills. No nausea or vomiting without any sick contacts. The first COVID test was negative. The patient's glucose is elevated. Currently, she is NPO and the TSH was noted to be 0.2. There is no history of thyroid disease. PAST MEDICAL HISTORY: 1. Dementia. 2. Hypertension. 3. Diabetes. 4. CVA. MEDICATIONS: Reviewed and reconciled. FAMILY HISTORY: Noncontributory. SOCIAL HISTORY: No smoking, alcohol, or drug use. ALLERGIES TO MEDICATION: None. REVIEW OF SYSTEMS: As per HPI. LABORATORY VALUES: Sodium 138, potassium 4.3, chloride 104, bicarb 27, BUN 25, creatinine 1.5, glucose of 218. A1c of 8. TSH is 0.29. PHYSICAL EXAMINATION: VITAL SIGNS: Blood pressure 129/60, heart rate 57, temperature 97, respiratory rate of 16. HEENT: Pupils are equal and reactive to light. Sclerae anicteric. NECK: No JVD. HEART: Regular. LUNGS: Clear. ABDOMEN: Positive bowel sounds. EXTREMITIES: No clubbing, cyanosis, or edema. DIAGNOSES: 1. Abdominal pain. 2. Diabetes, out of control. 3. Abnormal TSH. DISCUSSION: 1. The patient is NPO. Hold off on scheduled insulin. 2. Continue NovoLog sliding scale before meals and at bedtime. 3. Continue to hold Janumet due to renal failure. 4. Further adjustment according to the blood glucose values as well as feeding status. 5. Repeat thyroid function. The low TSH might be due to state of illness. We will also add free T4 and free T3. I will follow the results and further advise. Thank you, Dr. Rasheed, for the courtesy of this consultation. Kaz Castorena M.D. DR: CIRO JOB#: [id number] CC:
--- NOTE | 2020-04-17 08:05 | Pre-Procedure Note/Attestation ---
Pre-Procedure Note/Attestation Complete Prior to Procedure Planned Procedure: not applicable Procedure Narrative: egd Indications for Procedure Pre-Operative Diagnosis: esophagitis Attestation I attest that I discussed the nature of the procedure; its benefits; risks and complications; and alternatives (and the risks and benefits of such alternatives ), prior to the procedure, with the patient (or the patient's legal provider service representative). I attest that, if there was a reasonable possibility of needing a blood transfusion, the patient (or the patient's legal provider service representative) was given the [facility] standardized written summary, pursuant to the [place] Blood Safety Act ([place] Health and Safety Code # 1645, as amended). I attest that I re-evaluated the patient just prior to the surgery and that there has been no change in the patient's H&P, except as documented below: Dre Umana MD Apr 17, 2020 08:05
[2020-04-17] MEDS: Heparin 5000 units/ml inj SUBQ SCH ×2 (08:42→21:50)
[2020-04-17] MEDS: Docusate 100mg cap ORAL SCH ×2 (08:42→17:10)
[2020-04-17] MEDS: Pantoprazole Inj IVP SCH ×2 (09:08→21:49)
[2020-04-17] MEDS ORDERED: NS 500ML IVPB ONE (11:40)
--- NOTE | 2020-04-17 11:49 | Endoscopy Procedure Note ---
Endoscopy Procedure Note General Indication for Procedure: esophagitis Procedures Performed: EGD Operative Findings/Diagnosis: same Specimen: yes Pt Tolerated Procedure Well: Yes Estimated Blood Loss: none Anesthesia Anesthesiologist: gloria Anesthesia: MAC Inserted Devices Implant(s) used?: No GI Core Measures 50 yrs or older w/o bx or poly: Not Applicable 10yrs. F/U recommended: Not Applicable Dre Umana MD Apr 17, 2020 11:49
--- NOTE | 2020-04-17 11:55 | Immediate Post-Op Evaluation ---
Immediate Post-Op Evalulation Immediate Post-Op Evalulation Procedure: EGD Date of Evaluation: Apr 17, 2020 Time of Evaluation: 11:54 IV Fluids: 300 Blood Pressure Systolic: 119 Blood Pressure Diastolic: 61 Pulse Rate: 65 Respiratory Rate: 14 O2 Sat by Pulse Oximetry: 100 Temperature (Fahrenheit): 97.6 Nausea: No Vomiting: No Complications none Patient Status: awake, reacts, patent Hydration Status: adequate Drug: none Zita Chavez CRNA Apr 17, 2020 11:55
--- NOTE | 2020-04-17 11:55 | Anethesia Preoperative Eval ---
Anesthesia Pre-op PMH/ROS General Date of Evaluation: Apr 17, 2020 Time of Evaluation: 11:15 Anesthesiologist: tessie ASA Score: ASA 2 Mallampati Score Class I : Soft palate, uvula, fauces, pillars visible Class II: Soft palate, uvula, fauces visible Class III: Soft palate, base of uvula visible Class IV: Only hard plate visible Mallampati Classification: Class II Surgeon: sharon Diagnosis: GERD Surgical Procedure: EGD Anesthesia History: none Allergies: Coded Allergies: No Known Allergies (Unverified , 04/15/20) Medications: see eMAR Patient NPO?: Yes NPO Date: Apr 17, 2020 NPO Time: 00:01 Past Medical History Cardiovascular: Reports: HTN; Denies: CAD, TN, valve dz, arrhythmia, other Pulmonary: Denies: asthma, COPD, SRAVANI, other Gastrointestinal/Genitourinary: Reports: GERD; Denies: CRI, ESRD, other Neurologic/Psychiatric: Denies: dementia, CVA, depression/anxiety, TIA, other Endocrine: Reports: DM Hematology/Immune: Denies: anemia, DVT, bleeding disorder, other Musculoskeletal/Integumentary: Denies: OA, RA, DJD, DDD, edema, other Anesthesia Pre-op Phys. Exam Physician Exam Last Vital Signs Date Time Temp Pulse Resp B/P (MAP) Pulse Ox O2 Delivery O2 Flow Rate FiO2 04/17/20 09:00 Room Air 04/17/20 08:00 97.7 64 18 156/72 (100) 98 Constitutional: NAD Neurologic: CN 2-12 intact Cardiovascular: RRR Respiratory: CTA Gastrointestinal: S/NT/ND Airway Exam Mallampati Classification 2 Mallampati Score: Class II MO: full ROM: full Dentures: no upper, no lower Anesthesia Pre-op A/P Labs Hematology Test 04/17/20 05:55 White Blood Count 9.6 K/UL (4.8-10.8) Red Blood Count 4.14 M/UL (4.20-5.40) L Hemoglobin 13.0 G/DL (12.0-16.0) Hematocrit 39.1 % (37.0-47.0) Mean Corpuscular Volume 94 FL (80-99) Mean Corpuscular Hemoglobin 31.3 PG (27.0-31.0) H Mean Corpuscular Hemoglobin Concent 33.2 G/DL (32.0-36.0) Red Cell Distribution Width 11.5 % (11.6-14.8) L Platelet Count 180 K/UL (150-450) Mean Platelet Volume 8.6 FL (6.5-10.1) Neutrophils (%) (Auto) 68.6 % (45.0-75.0) Lymphocytes (%) (Auto) 24.1 % (20.0-45.0) Monocytes (%) (Auto) 5.7 % (1.0-10.0) Eosinophils (%) (Auto) 0.9 % (0.0-3.0) Basophils (%) (Auto) 0.7 % (0.0-2.0) Erythrocyte Sedimentation Rate 47 MM/HR (0-30) H Chemistry Test 04/17/20 05:55 Sodium Level 140 MMOL/L (136-145) Potassium Level 4.2 MMOL/L (3.5-5.1) Chloride Level 106 MMOL/L (98-107) Carbon Dioxide Level 27 MMOL/L (21-32) Anion Gap 7 mmol/L (5-15) Blood Urea Nitrogen 20 mg/dL (7-18) H Creatinine 1.4 MG/DL (0.55-1.30) H Estimat Glomerular Filtration Rate 44.1 mL/min (>60) Glucose Level 168 MG/DL (74-106) H Calcium Level 8.7 MG/DL (8.5-10.1) Phosphorus Level 2.9 MG/DL (2.5-4.9) Magnesium Level 2.1 MG/DL (1.8-2.4) Total Bilirubin 0.5 MG/DL (0.2-1.0) Aspartate Amino Transf (AST/SGOT) 26 U/L (15-37) Alanine Aminotransferase (ALT/SGPT) 31 U/L (12-78) Alkaline Phosphatase 58 U/L (46-116) C-Reactive Protein, Quantitative 2.9 mg/dL (0.00-0.90) H Total Protein 7.2 G/DL (6.4-8.2) Albumin 3.3 G/DL (3.4-5.0) L Globulin 3.9 g/dL Albumin/Globulin Ratio 0.8 (1.0-2.7) L Amylase Level 66 U/L (25-115) Lipase 196 U/L (73-393) Thyroid Stimulating Hormone (TSH) 0.719 uiU/mL (0.358-3.740) Free Thyroxine 1.10 NG/DL (0.76-1.46) Free Triiodothyronine 1.7 pg/mL (2.3-4.2) L Studies Pre-op Studies: EKG - SR Risk Assessment & Plan Assessment: COVID neg Plan: MAC Status Change Before Surgery: No Pre-Antibiotics Drug: none Zita Chavez [facility] Apr 17, 2020 11:55
--- NOTE | 2020-04-17 12:39 | Nephrology Progress Note ---
Assessment/Plan Problem List: (1) TYSHAWN (acute kidney injury) (2) Dehydration (3) HTN (hypertension) (4) DMII (diabetes mellitus, type 2) Assessment Renal failure most likely acute on chronic Diabetes mellitus [id number] Hypertension History of dementia Possible UTI Plan Serum creatinine lowered to 1.4, trans-dermal nitroglycerin added. Continue slow hydration Urine for culture and sensitivity Blood pressure medication, adjust BP meds. Keep the blood sugar in check Check TSH and troponin I: Results noted. Troponin I is slightly elevated. Subjective ROS Limited/Unobtainable: No Constitutional: Reports: malaise Objective Objective Last 24 Hour Vital Signs Date Time Temp Pulse Resp B/P (MAP) Pulse Ox O2 Delivery O2 Flow Rate FiO2 04/17/20 12:28 97.4 57 18 138/64 98 Room Air 04/17/20 12:20 58 16 137/68 98 Room Air 04/17/20 12:05 61 15 133/65 100 Nasal Cannula 3 04/17/20 12:00 59 16 121/62 100 Nasal Cannula 3 04/17/20 11:55 65 14 100 04/17/20 11:52 97.6 64 18 119/61 99 Nasal Cannula 3 04/17/20 09:00 Room Air 04/17/20 08:00 97.7 64 18 156/72 (100) 98 04/17/20 04:00 97.0 57 16 129/60 (83) 97 04/17/20 00:00 96.8 60 18 126/60 (82) 95 04/16/20 21:00 Room Air 04/16/20 20:00 97.9 65 18 148/73 (98) 97 04/16/20 16:00 97.9 62 18 145/76 (99) 96 Intake and Output 04/16/20 04/17/20 19:00 07:00 Intake Total 1305 ml 825 ml Balance 1305 ml 825 ml Intake Oral 480 ml IV Total 825 ml 825 ml # Voids 4 2 Current Medications Medications (Trade) Dose Ordered Sig/Amada Route PRN Reason Start Time Stop Time Status Last Admin Dose Admin Acetaminophen (Tylenol) 650 mg Q4H PRN ORAL fever 04/15/20 18:00 05/15/20 17:59 04/16/20 21:27 Amlodipine Besylate (Norvasc) 5 mg DAILY ORAL 04/16/20 09:15 05/16/20 09:14 04/16/20 09:22 Clopidogrel Bisulfate (Plavix) 75 mg DAILY ORAL 04/16/20 09:15 05/16/20 09:14 04/16/20 09:22 Dextrose (Dextrose 50%) 25 ml Q30M PRN IV Hypoglycemia 04/15/20 18:00 07/14/20 17:59 Dextrose (Dextrose 50%) 50 ml Q30M PRN IV Hypoglycemia 04/15/20 18:00 07/14/20 17:59 Docusate Sodium (Colace) 100 mg TWICE A DAY ORAL 04/16/20 09:15 05/16/20 09:14 04/17/20 17:10 Heparin Sodium (Porcine) (Heparin 5000 units/ml) 5,000 units EVERY 12 HOURS SUBQ 04/15/20 21:00 05/30/20 20:59 04/16/20 21:28 Insulin Aspart (NovoLOG) BEFORE MEALS AND HS SUBQ 04/15/20 21:00 07/14/20 20:59 04/17/20 17:02 Ondansetron HCl (Zofran) 4 mg Q6H PRN IVP Nausea & Vomiting 04/15/20 18:00 05/15/20 17:59 Pantoprazole (Protonix) 40 mg EVERY 12 HOURS IVP 04/16/20 09:15 05/16/20 09:14 04/17/20 09:08 Polyethylene Glycol (Miralax) 17 gm HSPRN PRN ORAL Constipation 04/15/20 18:00 05/15/20 17:59 Sodium Chloride 1,000 ml @ 75 mls/hr [id number] IV 04/15/20 20:00 05/15/20 19:59 04/17/20 15:41 Zolpidem Tartrate (Ambien) 5 mg HSPRN PRN ORAL Insomnia 04/15/20 18:00 04/22/20 17:59 04/16/20 21:26 Laboratory Tests 04/17/20 05:55: White Blood Count 9.6, Red Blood Count 4.14L, Hemoglobin 13.0, Hematocrit 39.1, Mean Corpuscular Volume 94, Mean Corpuscular Hemoglobin 31.3H, Mean Corpuscular Hemoglobin Concent 33.2, Red Cell Distribution Width 11.5L, Platelet Count 180, Mean Platelet Volume 8.6, Neutrophils (%) (Auto) 68.6, Lymphocytes (%) (Auto) 24.1, Monocytes (%) (Auto) 5.7, Eosinophils (%) (Auto) 0.9, Basophils (%) (Auto ) 0.7, Erythrocyte Sedimentation Rate 47H, Sodium Level 140, Potassium Level 4.2 , Chloride Level 106, Carbon Dioxide Level 27, Anion Gap 7, Blood Urea Nitrogen 20H, Creatinine 1.4H, Estimat Glomerular Filtration Rate 44.1, Glucose Level 168H, Calcium Level 8.7, Phosphorus Level 2.9, Magnesium Level 2.1, Total Bilirubin 0.5, Aspartate Amino Transf (AST/SGOT) 26, Alanine Aminotransferase ( ALT/SGPT) 31, Alkaline Phosphatase 58, C-Reactive Protein, Quantitative 2.9H, Total Protein 7.2, Albumin 3.3L, Globulin 3.9, Albumin/Globulin Ratio 0.8L, Amylase Level 66, Lipase 196, Thyroid Stimulating Hormone (TSH) 0.719, Free Thyroxine 1.10, Free Triiodothyronine 1.7L Height (Feet): 5 Height (Inches): 5.00 Weight (Pounds): 119 General Appearance: no apparent distress, lethargic Cardiovascular: normal rate Respiratory/Chest: decreased breath sounds Abdomen: soft Manuel Nelson MD Apr 17, 2020 12:39
--- NOTE | 2020-04-17 13:04 | Pulmonology Progress Note ---
Subjective ROS Limited/Unobtainable: Yes Constitutional: Reports: no symptoms HEENT: Repors: no symptoms Allergies: Coded Allergies: No Known Allergies (Unverified , 04/15/20) Objective Last 24 Hour Vital Signs Date Time Temp Pulse Resp B/P (MAP) Pulse Ox O2 Delivery O2 Flow Rate FiO2 04/17/20 12:28 97.4 57 18 138/64 98 Room Air 04/17/20 12:20 58 16 137/68 98 Room Air 04/17/20 12:05 61 15 133/65 100 Nasal Cannula 3 04/17/20 12:00 59 16 121/62 100 Nasal Cannula 3 04/17/20 11:55 65 14 100 04/17/20 11:52 97.6 64 18 119/61 99 Nasal Cannula 3 04/17/20 09:00 Room Air 04/17/20 08:00 97.7 64 18 156/72 (100) 98 04/17/20 04:00 97.0 57 16 129/60 (83) 97 04/17/20 00:00 96.8 60 18 126/60 (82) 95 04/16/20 21:00 Room Air 04/16/20 20:00 97.9 65 18 148/73 (98) 97 04/16/20 16:00 97.9 62 18 145/76 (99) 96 Intake and Output 04/16/20 04/17/20 19:01 07:01 Intake Total 1305 ml 825 ml Balance 1305 ml 825 ml Intake Oral 480 ml IV Total 825 ml 825 ml # Voids 4 2 General Appearance: WD/WN, no acute distress HEENT: normocephalic, atraumatic Respiratory: chest wall non-tender, lungs clear, normal breath sounds Breasts: no masses Abdomen: normal bowel sounds, no organomegaly Extremities: no cyanosis Skin: no rash Microbiology Date/Time Source Procedure Growth Status 04/16/20 15:30 Nasopharynx SARS-CoV-2 RdRp Gene Assay - Final Complete Laboratory Tests 04/17/20 05:55: White Blood Count 9.6, Red Blood Count 4.14L, Hemoglobin 13.0, Hematocrit 39.1, Mean Corpuscular Volume 94, Mean Corpuscular Hemoglobin 31.3H, Mean Corpuscular Hemoglobin Concent 33.2, Red Cell Distribution Width 11.5L, Platelet Count 180, Mean Platelet Volume 8.6, Neutrophils (%) (Auto) 68.6, Lymphocytes (%) (Auto) 24.1, Monocytes (%) (Auto) 5.7, Eosinophils (%) (Auto) 0.9, Basophils (%) (Auto ) 0.7, Erythrocyte Sedimentation Rate 47H, Sodium Level 140, Potassium Level 4.2 , Chloride Level 106, Carbon Dioxide Level 27, Anion Gap 7, Blood Urea Nitrogen 20H, Creatinine 1.4H, Estimat Glomerular Filtration Rate 44.1, Glucose Level 168H, Calcium Level 8.7, Phosphorus Level 2.9, Magnesium Level 2.1, Total Bilirubin 0.5, Aspartate Amino Transf (AST/SGOT) 26, Alanine Aminotransferase ( ALT/SGPT) 31, Alkaline Phosphatase 58, C-Reactive Protein, Quantitative 2.9H, Total Protein 7.2, Albumin 3.3L, Globulin 3.9, Albumin/Globulin Ratio 0.8L, Amylase Level 66, Lipase 196, Thyroid Stimulating Hormone (TSH) 0.719, Free Thyroxine 1.10, Free Triiodothyronine 1.7L Current Medications Medications (Trade) Dose Ordered Sig/Amada Route PRN Reason Start Time Stop Time Status Last Admin Dose Admin Acetaminophen (Tylenol) 650 mg Q4H PRN ORAL fever 04/15/20 18:00 05/15/20 17:59 04/16/20 21:27 Amlodipine Besylate (Norvasc) 5 mg DAILY ORAL 04/16/20 09:15 05/16/20 09:14 04/16/20 09:22 Clopidogrel Bisulfate (Plavix) 75 mg DAILY ORAL 04/16/20 09:15 05/16/20 09:14 04/16/20 09:22 Dextrose (Dextrose 50%) 25 ml Q30M PRN IV Hypoglycemia 04/15/20 18:00 07/14/20 17:59 Dextrose (Dextrose 50%) 50 ml Q30M PRN IV Hypoglycemia 04/15/20 18:00 07/14/20 17:59 Docusate Sodium (Colace) 100 mg TWICE A DAY ORAL 04/16/20 09:15 05/16/20 09:14 04/16/20 17:06 Heparin Sodium (Porcine) (Heparin 5000 units/ml) 5,000 units EVERY 12 HOURS SUBQ 04/15/20 21:00 05/30/20 20:59 04/16/20 21:28 Insulin Aspart (NovoLOG) BEFORE MEALS AND HS SUBQ 04/15/20 21:00 07/14/20 20:59 04/16/20 21:30 Iohexol (OMNIPAQUE-300 100ml) 100 ml NOW PRN INJ Radiology Procedure 04/15/20 15:30 04/17/20 15:29 Ondansetron HCl (Zofran) 4 mg Q6H PRN IVP Nausea & Vomiting 04/15/20 18:00 05/15/20 17:59 Pantoprazole (Protonix) 40 mg EVERY 12 HOURS IVP 04/16/20 09:15 05/16/20 09:14 04/17/20 09:08 Polyethylene Glycol (Miralax) 17 gm HSPRN PRN ORAL Constipation 04/15/20 18:00 05/15/20 17:59 Sodium Chloride 1,000 ml @ 75 mls/hr [id number] IV 04/15/20 20:00 05/15/20 19:59 04/16/20 22:51 Zolpidem Tartrate (Ambien) 5 mg HSPRN PRN ORAL Insomnia 04/15/20 18:00 04/22/20 17:59 04/16/20 21:26 Assessment/Plan Problems: (1) Intractable abdominal pain (2) Acute dehydration (3) History of diabetes mellitus (4) History of hypertension (5) History of CVA (cerebrovascular accident) Assessment/Plan EGD showed esophagitis restart diet symptomatic treatment H2 blockers iv fluids sliding scale monitor BP dvt prophylaxis. Bob Rasheed MD Apr 17, 2020 13:04
--- NOTE | 2020-04-17 15:09 | 48 Hour Post Anesthesia Eval ---
Post Anesthesia Evaluation Procedure: EGD Date of Evaluation: Apr 17, 2020 Time of Evaluation: 15:08 Blood Pressure Systolic: 154 0: 74 Pulse Rate: 54 Respiratory Rate: 14 O2 Sat by Pulse Oximetry: 95 Airway: patent Nausea: No Vomiting: No Hydration Status: adequate Cardiopulmonary Status: stable Mental Status/LOC: patient returned to baseline Follow-up Care/Observations: na Post-Anesthesia Complications: none Follow-up care needed: N/A Zita Chavez CRNA Apr 17, 2020 15:09
--- NOTE | 2020-04-17 17:15 | Procedure Note ---
DATE OF PROCEDURE: 04/17/2020 SURGEON: Dre Umana MD. PROCEDURE: Upper endoscopy with biopsy. ANESTHESIA: Per RAND MAKER, Zita Tarrillion. INSTRUMENT: Olympus adult flexible upper endoscope. INDICATION: Esophagitis. REASON FOR PROCEDURE: The procedure, risks, benefits, and possible consequences, including hemorrhage, aspiration, perforation and infection, and alternative treatments, were explained to the patient/legal guardian by Dr. Dre Umana and the patient/legal guardian understood and accepted these risks. DESCRIPTION OF PROCEDURE: After informed consent was obtained and the patient was adequately sedated, Olympus upper endoscope was advanced from mouth into the second portion of the duodenum and retroflexion was performed in the stomach. The patient had minimum distal esophagitis without any obvious ulceration or bleeding. In the stomach, there was diffuse gastritis. Random biopsy from antrum was obtained to rule out H. pylori infection. Otherwise, the rest of the upper endoscopic examination grossly looked within normal limits. The patient tolerated the procedure without any complication. SUMMARY OF FINDINGS: 1. Minimum distal esophagitis. 2. Gastritis, status post biopsy. RECOMMENDATIONS: Follow up biopsy results and treat accordingly. I want to thank Dr. Rasheed for this kind referral. Dre Umana M.D. DR: ZACARIAS JOB#: [id number] CC: Bob Rasheed M.D.; Fax#: [phone]
[2020-04-17] MEDS: Nitroglycerin Patch 0.4mg TDERMAL SCH (18:46)
[2020-04-18] VITALS (7 sets, daily range): BP systolic 124–159; BP diastolic 60–98
--- NOTE | 2020-04-18 05:49 | General Progress Note ---
Assessment/Plan Problem List: (1) Renal insufficiency ICD Codes: N28.9 - Disorder of kidney and ureter, unspecified SNOMED: 993741380, [id number] (2) Abdominal pain ICD Codes: R10.9 - Unspecified abdominal pain SNOMED: 49037772, 324751970 Qualifiers: Qualified Codes: R10.84 - Generalized abdominal pain (3) History of diabetes mellitus ICD Codes: Z86.39 - Personal history of other endocrine, nutritional and metabolic disease SNOMED: 493814150 Assessment/Plan: add Starlix 60 mg ac tid add Januvia 50 mg daily continue Novolog sliding scale ac / hs Dr Reyes will cover me till Wednesday Subjective Allergies: Coded Allergies: No Known Allergies (Unverified , 04/15/20) Subjective events noted diet resumed glucose values on higher side Item Value Date Time Bedside Blood Glucose 163 mg/dl H 04/17/20 2151 Bedside Blood Glucose 261 mg/dl H 04/17/20 1702 Bedside Blood Glucose 160 mg/dl H 04/17/20 0630 Objective Last 24 Hour Vital Signs Date Time Temp Pulse Resp B/P (MAP) Pulse Ox O2 Delivery O2 Flow Rate FiO2 04/18/20 00:00 98.0 68 18 132/68 (89) 98 04/17/20 21:00 Room Air 04/17/20 20:00 98.4 64 19 152/69 (96) 97 04/17/20 18:46 151/69 04/17/20 17:00 98.6 64 18 154/67 (96) 94 04/17/20 16:00 99.7 66 18 155/67 (96) 94 04/17/20 15:09 54 14 95 04/17/20 12:30 98.1 65 20 154/77 (102) 96 04/17/20 12:28 97.4 57 18 138/64 98 Room Air 04/17/20 12:20 58 16 137/68 98 Room Air 04/17/20 12:05 61 15 133/65 100 Nasal Cannula 3 04/17/20 12:00 59 16 121/62 100 Nasal Cannula 3 04/17/20 11:55 65 14 100 04/17/20 11:52 97.6 64 18 119/61 99 Nasal Cannula 3 04/17/20 09:00 Room Air 04/17/20 08:00 97.7 64 18 156/72 (100) 98 Intake and Output 04/17/20 04/18/20 19:00 07:00 Intake Total 1745 ml 450 ml Output Total 0 ml Balance 1745 ml 450 ml Intake Oral 820 ml IV Total 925 ml 450 ml Output Estimated Blood Loss 0 ml # Voids 5 Laboratory Tests 04/17/20 05:55: White Blood Count 9.6, Red Blood Count 4.14L, Hemoglobin 13.0, Hematocrit 39.1, Mean Corpuscular Volume 94, Mean Corpuscular Hemoglobin 31.3H, Mean Corpuscular Hemoglobin Concent 33.2, Red Cell Distribution Width 11.5L, Platelet Count 180, Mean Platelet Volume 8.6, Neutrophils (%) (Auto) 68.6, Lymphocytes (%) (Auto) 24.1, Monocytes (%) (Auto) 5.7, Eosinophils (%) (Auto) 0.9, Basophils (%) (Auto ) 0.7, Erythrocyte Sedimentation Rate 47H, Sodium Level 140, Potassium Level 4.2 , Chloride Level 106, Carbon Dioxide Level 27, Anion Gap 7, Blood Urea Nitrogen 20H, Creatinine 1.4H, Estimat Glomerular Filtration Rate 44.1, Glucose Level 168H, Calcium Level 8.7, Phosphorus Level 2.9, Magnesium Level 2.1, Total Bilirubin 0.5, Aspartate Amino Transf (AST/SGOT) 26, Alanine Aminotransferase ( ALT/SGPT) 31, Alkaline Phosphatase 58, C-Reactive Protein, Quantitative 2.9H, Total Protein 7.2, Albumin 3.3L, Globulin 3.9, Albumin/Globulin Ratio 0.8L, Amylase Level 66, Lipase 196, Thyroid Stimulating Hormone (TSH) 0.719, Free Thyroxine 1.10, Free Triiodothyronine 1.7L Height (Feet): 5 Height (Inches): 5.00 Weight (Pounds): 119 General Appearance: no apparent distress Neck: normal alignment Cardiovascular: normal rate Abdomen: normal bowel sounds Objective Current Medications Medications (Trade) Dose Ordered Sig/Amada Route PRN Reason Start Time Stop Time Status Last Admin Dose Admin Acetaminophen (Tylenol) 650 mg Q4H PRN ORAL fever 04/15/20 18:00 05/15/20 17:59 04/16/20 21:27 Amlodipine Besylate (Norvasc) 5 mg DAILY ORAL 04/16/20 09:15 05/16/20 09:14 04/16/20 09:22 Clopidogrel Bisulfate (Plavix) 75 mg DAILY ORAL 04/16/20 09:15 05/16/20 09:14 04/16/20 09:22 Dextrose (Dextrose 50%) 25 ml Q30M PRN IV Hypoglycemia 04/15/20 18:00 07/14/20 17:59 Dextrose (Dextrose 50%) 50 ml Q30M PRN IV Hypoglycemia 04/15/20 18:00 07/14/20 17:59 Docusate Sodium (Colace) 100 mg TWICE A DAY ORAL 04/16/20 09:15 05/16/20 09:14 04/17/20 17:10 Heparin Sodium (Porcine) (Heparin 5000 units/ml) 5,000 units EVERY 12 HOURS SUBQ 04/15/20 21:00 05/30/20 20:59 04/17/20 21:50 Insulin Aspart (NovoLOG) BEFORE MEALS AND HS SUBQ 04/15/20 21:00 07/14/20 20:59 04/17/20 21:51 Nitroglycerin (Ntg) 1 patch Q24H TDERMAL 04/17/20 18:30 05/17/20 18:29 04/17/20 18:46 Ondansetron HCl (Zofran) 4 mg Q6H PRN IVP Nausea & Vomiting 04/15/20 18:00 05/15/20 17:59 Pantoprazole (Protonix) 40 mg EVERY 12 HOURS IVP 04/16/20 09:15 05/16/20 09:14 04/17/20 21:49 Polyethylene Glycol (Miralax) 17 gm HSPRN PRN ORAL Constipation 04/15/20 18:00 05/15/20 17:59 Sodium Chloride 1,000 ml @ 50 mls/hr Q20H IV 04/17/20 18:30 05/15/20 18:29 04/17/20 18:46 Zolpidem Tartrate (Ambien) 5 mg HSPRN PRN ORAL Insomnia 04/15/20 18:00 04/22/20 17:59 04/16/20 21:26 Kaz Castorena MD Apr 18, 2020 05:49
[2020-04-18] MEDS: Nateglinide 60mg tab ORAL SCH ×3 (06:25→16:47)
[2020-04-18] MEDS: sitaGLIPtin 50mg tab ORAL SCH (06:25)
[2020-04-18] MEDS: NovoLOG Insulin Flexpen SUBQ SCH ×4 (06:26→21:27)
--- NOTE | 2020-04-18 06:57 | General Progress Note ---
Assessment/Plan Assessment/Plan: abd pain Hiatal hernia Esophagitis DM elevated trop ppi on plavix CT reviewed on diet s/p EGD fu cardiology Subjective ROS Limited/Unobtainable: Yes Allergies: Coded Allergies: No Known Allergies (Unverified , 04/15/20) Objective Last 24 Hour Vital Signs Date Time Temp Pulse Resp B/P (MAP) Pulse Ox O2 Delivery O2 Flow Rate FiO2 04/18/20 04:00 97.5 76 18 159/98 (118) 99 04/18/20 00:00 98.0 68 18 132/68 (89) 98 04/17/20 21:00 Room Air 04/17/20 20:00 98.4 64 19 152/69 (96) 97 04/17/20 18:46 151/69 04/17/20 17:00 98.6 64 18 154/67 (96) 94 04/17/20 16:00 99.7 66 18 155/67 (96) 94 04/17/20 15:09 54 14 95 04/17/20 12:30 98.1 65 20 154/77 (102) 96 04/17/20 12:28 97.4 57 18 138/64 98 Room Air 04/17/20 12:20 58 16 137/68 98 Room Air 04/17/20 12:05 61 15 133/65 100 Nasal Cannula 3 04/17/20 12:00 59 16 121/62 100 Nasal Cannula 3 04/17/20 11:55 65 14 100 04/17/20 11:52 97.6 64 18 119/61 99 Nasal Cannula 3 04/17/20 09:00 Room Air 04/17/20 08:00 97.7 64 18 156/72 (100) 98 Intake and Output 04/17/20 04/18/20 19:00 07:00 Intake Total 1745 ml 600 ml Output Total 0 ml Balance 1745 ml 600 ml Intake Oral 820 ml IV Total 925 ml 600 ml Output Estimated Blood Loss 0 ml # Voids 5 2 Height (Feet): 5 Height (Inches): 5.00 Weight (Pounds): 119 General Appearance: alert EENT: normal ENT inspection Neck: normal alignment Cardiovascular: normal rate Respiratory/Chest: lungs clear Abdomen: normal bowel sounds, non tender, soft Extremities: non-tender Dre Umana MD Apr 18, 2020 06:57
[2020-04-18] MEDS: Docusate 100mg cap ORAL SCH ×2 (09:06→18:04)
[2020-04-18] MEDS: Heparin 5000 units/ml inj SUBQ SCH ×2 (09:06→21:26)
[2020-04-18] MEDS: Pantoprazole Inj IVP SCH ×2 (09:07→21:24)
--- NOTE | 2020-04-18 10:10 | Nephrology Progress Note ---
Assessment/Plan Problem List: (1) TYSHAWN (acute kidney injury) (2) Dehydration (3) HTN (hypertension) (4) DMII (diabetes mellitus, type 2) Assessment Renal failure most likely acute on chronic Diabetes mellitus [id number] Hypertension History of dementia Possible UTI Plan April 18: No labs done today, will recheck lab tomorrow. Continue per current management. Medication reviewed. Serum creatinine lowered to 1.4, trans-dermal nitroglycerin added. Continue slow hydration Urine for culture and sensitivity Blood pressure medication, adjust BP meds. Keep the blood sugar in check Check TSH and troponin I: Results noted. Troponin I is slightly elevated. Subjective ROS Limited/Unobtainable: No Constitutional: Reports: malaise Objective Objective Last 24 Hour Vital Signs Date Time Temp Pulse Resp B/P (MAP) Pulse Ox O2 Delivery O2 Flow Rate FiO2 04/18/20 09:06 79 155/83 04/18/20 09:00 Room Air 04/18/20 08:00 98.2 79 18 155/83 (107) 98 04/18/20 04:00 97.5 76 18 159/98 (118) 99 04/18/20 00:00 98.0 68 18 132/68 (89) 98 04/17/20 21:00 Room Air 04/17/20 20:00 98.4 64 19 152/69 (96) 97 04/17/20 18:46 151/69 04/17/20 17:00 98.6 64 18 154/67 (96) 94 04/17/20 16:00 99.7 66 18 155/67 (96) 94 04/17/20 15:09 54 14 95 04/17/20 12:30 98.1 65 20 154/77 (102) 96 04/17/20 12:28 97.4 57 18 138/64 98 Room Air 04/17/20 12:20 58 16 137/68 98 Room Air 04/17/20 12:05 61 15 133/65 100 Nasal Cannula 3 04/17/20 12:00 59 16 121/62 100 Nasal Cannula 3 04/17/20 11:55 65 14 100 04/17/20 11:52 97.6 64 18 119/61 99 Nasal Cannula 3 Intake and Output 04/17/20 04/18/20 19:00 07:00 Intake Total 1745 ml 600 ml Output Total 0 ml Balance 1745 ml 600 ml Intake Oral 820 ml IV Total 925 ml 600 ml Output Estimated Blood Loss 0 ml # Voids 5 2 No labs are done today Height (Feet): 5 Height (Inches): 5.00 Weight (Pounds): 119 General Appearance: no apparent distress Cardiovascular: normal rate Respiratory/Chest: lungs clear Abdomen: soft Objective No change Manuel Nelson MD Apr 18, 2020 10:10
--- NOTE | 2020-04-18 14:15 | Pulmonology Progress Note ---
Subjective ROS Limited/Unobtainable: No Constitutional: Reports: no symptoms HEENT: Repors: no symptoms Allergies: Coded Allergies: No Known Allergies (Unverified , 04/15/20) Objective Last 24 Hour Vital Signs Date Time Temp Pulse Resp B/P (MAP) Pulse Ox O2 Delivery O2 Flow Rate FiO2 04/18/20 12:00 98.0 76 18 129/98 (108) 99 04/18/20 09:06 79 155/83 04/18/20 09:00 Room Air 04/18/20 08:00 98.2 79 18 155/83 (107) 98 04/18/20 04:00 97.5 76 18 159/98 (118) 99 04/18/20 00:00 98.0 68 18 132/68 (89) 98 04/17/20 21:00 Room Air 04/17/20 20:00 98.4 64 19 152/69 (96) 97 04/17/20 18:46 151/69 04/17/20 17:00 98.6 64 18 154/67 (96) 94 04/17/20 16:00 99.7 66 18 155/67 (96) 94 04/17/20 15:09 54 14 95 Intake and Output 04/17/20 04/18/20 19:00 07:00 Intake Total 1745 ml 600 ml Output Total 0 ml Balance 1745 ml 600 ml Intake Oral 820 ml IV Total 925 ml 600 ml Output Estimated Blood Loss 0 ml # Voids 5 2 General Appearance: WD/WN, no acute distress HEENT: normocephalic, atraumatic Respiratory: chest wall non-tender, lungs clear, normal breath sounds Breasts: no masses Abdomen: normal bowel sounds, no organomegaly Extremities: no cyanosis Skin: no rash Microbiology Date/Time Source Procedure Growth Status 04/16/20 15:30 Nasopharynx SARS-CoV-2 RdRp Gene Assay - Final Complete 04/16/20 11:00 Straight Cath Urine Culture - Preliminary NO GROWTH AFTER 24 HOURS Resulted Laboratory Tests 04/17/20 16:59: POC Whole Blood Glucose 261H 04/17/20 20:54: POC Whole Blood Glucose 163H Current Medications Medications (Trade) Dose Ordered Sig/Amada Route PRN Reason Start Time Stop Time Status Last Admin Dose Admin Acetaminophen (Tylenol) 650 mg Q4H PRN ORAL fever 04/15/20 18:00 05/15/20 17:59 04/16/20 21:27 Amlodipine Besylate (Norvasc) 5 mg DAILY ORAL 04/16/20 09:15 05/16/20 09:14 04/18/20 09:06 Clopidogrel Bisulfate (Plavix) 75 mg DAILY ORAL 04/16/20 09:15 05/16/20 09:14 04/18/20 09:06 Dextrose (Dextrose 50%) 25 ml Q30M PRN IV Hypoglycemia 04/15/20 18:00 07/14/20 17:59 Dextrose (Dextrose 50%) 50 ml Q30M PRN IV Hypoglycemia 04/15/20 18:00 07/14/20 17:59 Docusate Sodium (Colace) 100 mg TWICE A DAY ORAL 04/16/20 09:15 05/16/20 09:14 04/18/20 09:06 Heparin Sodium (Porcine) (Heparin 5000 units/ml) 5,000 units EVERY 12 HOURS SUBQ 04/15/20 21:00 05/30/20 20:59 04/18/20 09:06 Insulin Aspart (NovoLOG) BEFORE MEALS AND HS SUBQ 04/15/20 21:00 07/14/20 20:59 04/18/20 12:31 Nateglinide (Starlix) 60 mg TIAC ORAL 04/18/20 06:30 05/18/20 06:29 04/18/20 12:30 Nitroglycerin (Ntg) 1 patch Q24H TDERMAL 04/17/20 18:30 05/17/20 18:29 04/17/20 18:46 Ondansetron HCl (Zofran) 4 mg Q6H PRN IVP Nausea & Vomiting 04/15/20 18:00 05/15/20 17:59 Pantoprazole (Protonix) 40 mg EVERY 12 HOURS IVP 04/16/20 09:15 05/16/20 09:14 04/18/20 09:07 Polyethylene Glycol (Miralax) 17 gm HSPRN PRN ORAL Constipation 04/15/20 18:00 05/15/20 17:59 Sitagliptin Phosphate (Januvia) 50 mg ACBREAKFAST ORAL 04/18/20 06:30 05/18/20 06:29 04/18/20 06:25 Sodium Chloride 1,000 ml @ 50 mls/hr Q20H IV 04/17/20 18:30 05/15/20 18:29 04/17/20 18:46 Zolpidem Tartrate (Ambien) 5 mg HSPRN PRN ORAL Insomnia 04/15/20 18:00 04/22/20 17:59 04/16/20 21:26 Assessment/Plan Problems: (1) Intractable abdominal pain (2) Acute dehydration (3) History of diabetes mellitus (4) History of hypertension (5) History of CVA (cerebrovascular accident) Assessment/Plan doing better creatinine decreasing check labs in am EGD showed esophagitis restart diet symptomatic treatment H2 blockers iv fluids sliding scale monitor BP dvt prophylaxis. Bob Rasheed MD Apr 18, 2020 14:14
[2020-04-18] MEDS: Nitroglycerin Patch 0.4mg TDERMAL SCH (18:05)
[2020-04-19 04:00] VITALS: BP 133/73
[2020-04-19] MEDS: Nateglinide 60mg tab ORAL SCH (06:10)
[2020-04-19] MEDS: sitaGLIPtin 50mg tab ORAL SCH (06:10)
[2020-04-19] MEDS: NovoLOG Insulin Flexpen SUBQ SCH (06:11)
[2020-04-19 06:30] LABS: BASOPHILS % (AUTO) 0.8 % (0.0-2.0); EOSINOPHILS % (AUTO) 1.1 % (0.0-3.0); HEMATOCRIT 38.3 % (37.0-47.0); HEMOGLOBIN 12.5 G/DL (12.0-16.0); LYMPHOCYTES % (AUTO) 21.3 % (20.0-45.0); MEAN CORPUSCULAR VOLUME 95 FL (80-99); NEUTROPHILS % (AUTO) 69.7 % (45.0-75.0); PLATELET COUNT 182 K/UL (150-450); RED BLOOD COUNT 4.01 M/UL (4.20-5.40); RED CELL DISTRIBUTION WIDTH 12.4 % (11.6-14.8); WHITE BLOOD COUNT 8.6 K/UL (4.8-10.8)
[2020-04-19 06:40] LABS: ANION GAP 9 mmol/L (5-15); BLOOD UREA NITROGEN 15 mg/dL (7-18); CALCIUM 9.2 MG/DL (8.5-10.1); CARBON DIOXIDE 28 MMOL/L (21-32); CHLORIDE 105 MMOL/L (98-107); CREATININE 1.5 MG/DL (0.55-1.30); POTASSIUM 3.9 MMOL/L (3.5-5.1); SODIUM 142 MMOL/L (136-145)
[2020-04-19 08:00] VITALS: BP 158/73
[2020-04-19 08:39] VITALS: BP 158/73
[2020-04-19] MEDS: Pantoprazole Inj IVP SCH (08:39)
[2020-04-19] MEDS: Docusate 100mg cap ORAL SCH (08:39)
[2020-04-19] MEDS: Heparin 5000 units/ml inj SUBQ SCH (08:42)
--- NOTE | 2020-04-19 09:22 | General Progress Note ---
Assessment/Plan Assessment/Plan: abd pain Hiatal hernia Esophagitis DM elevated trop ppi>>> change to po daily on plavix CT reviewed on diet s/p EGD fu cardiology Subjective ROS Limited/Unobtainable: Yes Allergies: Coded Allergies: No Known Allergies (Unverified , 04/15/20) Objective Last 24 Hour Vital Signs Date Time Temp Pulse Resp B/P (MAP) Pulse Ox O2 Delivery O2 Flow Rate FiO2 04/19/20 08:39 76 158/73 04/19/20 08:00 96.4 76 16 158/73 (101) 99 04/19/20 04:00 98.8 82 18 133/73 (93) 97 04/18/20 23:50 98.6 77 18 124/68 (86) 97 04/18/20 21:00 Room Air 04/18/20 20:00 98.1 76 18 139/80 (99) 96 04/18/20 18:05 129/60 04/18/20 16:00 97.0 18 129/60 (83) 97 04/18/20 12:00 98.0 76 18 129/98 (108) 99 Intake and Output 04/18/20 04/19/20 19:00 07:00 Intake Total 1020 ml 50 ml Balance 1020 ml 50 ml Intake Oral 720 ml IV Total 300 ml 50 ml # Voids 3 2 Laboratory Tests 04/19/20 05:35: White Blood Count 8.6, Red Blood Count 4.01L, Hemoglobin 12.5, Hematocrit 38.3, Mean Corpuscular Volume 95, Mean Corpuscular Hemoglobin 31.1H, Mean Corpuscular Hemoglobin Concent 32.6, Red Cell Distribution Width 12.4, Platelet Count 182, Mean Platelet Volume 8.5, Neutrophils (%) (Auto) 69.7, Lymphocytes (%) (Auto) 21.3, Monocytes (%) (Auto) 7.0, Eosinophils (%) (Auto) 1.1, Basophils (%) (Auto ) 0.8, Sodium Level 142, Potassium Level 3.9, Chloride Level 105, Carbon Dioxide Level 28, Anion Gap 9, Blood Urea Nitrogen 15, Creatinine 1.5H, Estimat Glomerular Filtration Rate 40.7, Glucose Level 212H, Calcium Level 9.2 Height (Feet): 5 Height (Inches): 5.00 Weight (Pounds): 119 General Appearance: alert EENT: normal ENT inspection Neck: supple Cardiovascular: normal rate Respiratory/Chest: lungs clear Abdomen: normal bowel sounds, non tender, soft Extremities: non-tender Dre Umana MD Apr 19, 2020 09:22
--- NOTE | 2020-04-19 09:34 | Nephrology Progress Note ---
Assessment/Plan Problem List: (1) TYSHAWN (acute kidney injury) (2) Dehydration (3) HTN (hypertension) (4) DMII (diabetes mellitus, type 2) Assessment Renal failure most likely acute on chronic Diabetes mellitus [id number] Hypertension History of dementia Possible UTI Plan April 19: Lab reviewed. Serum creatinine 1.5. Remaining stable from renal standpoint of view. April 18: No labs done today, will recheck lab tomorrow. Continue per current management. Medication reviewed. Serum creatinine lowered to 1.4, trans-dermal nitroglycerin added. Continue slow hydration Urine for culture and sensitivity Blood pressure medication, adjust BP meds. Keep the blood sugar in check Check TSH and troponin I: Results noted. Troponin I is slightly elevated. Subjective ROS Limited/Unobtainable: No Constitutional: Reports: malaise Objective Objective Last 24 Hour Vital Signs Date Time Temp Pulse Resp B/P (MAP) Pulse Ox O2 Delivery O2 Flow Rate FiO2 04/19/20 08:39 76 158/73 04/19/20 08:00 96.4 76 16 158/73 (101) 99 04/19/20 04:00 98.8 82 18 133/73 (93) 97 04/18/20 23:50 98.6 77 18 124/68 (86) 97 04/18/20 21:00 Room Air 04/18/20 20:00 98.1 76 18 139/80 (99) 96 04/18/20 18:05 129/60 04/18/20 16:00 97.0 18 129/60 (83) 97 04/18/20 12:00 98.0 76 18 129/98 (108) 99 Intake and Output 04/18/20 04/19/20 19:00 07:00 Intake Total 1020 ml 50 ml Balance 1020 ml 50 ml Intake Oral 720 ml IV Total 300 ml 50 ml # Voids 3 2 Laboratory Tests 04/19/20 05:35: White Blood Count 8.6, Red Blood Count 4.01L, Hemoglobin 12.5, Hematocrit 38.3, Mean Corpuscular Volume 95, Mean Corpuscular Hemoglobin 31.1H, Mean Corpuscular Hemoglobin Concent 32.6, Red Cell Distribution Width 12.4, Platelet Count 182, Mean Platelet Volume 8.5, Neutrophils (%) (Auto) 69.7, Lymphocytes (%) (Auto) 21.3, Monocytes (%) (Auto) 7.0, Eosinophils (%) (Auto) 1.1, Basophils (%) (Auto ) 0.8, Sodium Level 142, Potassium Level 3.9, Chloride Level 105, Carbon Dioxide Level 28, Anion Gap 9, Blood Urea Nitrogen 15, Creatinine 1.5H, Estimat Glomerular Filtration Rate 40.7, Glucose Level 212H, Calcium Level 9.2 Height (Feet): 5 Height (Inches): 5.00 Weight (Pounds): 119 General Appearance: no apparent distress Objective No change Manuel Nelson MD Apr 19, 2020 09:34
[2020-04-19] MEDS ORDERED: STARLIX60 MG ORAL (10:44)
[2020-04-19] MEDS ORDERED: JANUVIA50 MG ORAL (10:44)
--- NOTE | 2020-04-21 14:30 | Discharge Summary ---
Discharge Summary Discharge Summary _ DATE OF ADMISSION: 04/15/2020 DATE OF DISCHARGE: 04/19/2020 DISCHARGED BY: Dr. Bob Rasheed CONSULTANTS: Dr. Manuel Castorena BRIEF HOSPITAL COURSE: The patient is a 79-year-old female, with history of diabetes mellitus, hypertension, dementia, CVA, presented to ED from her primary care physician's office with chief complaint of abdominal pain that started 30 minutes prior to arrival. Son stated that patient appeared very pale and diaphoretic. Pain was dull, 8 out of 10, and nonradiating. She denied any fever or chills. There was noted nausea. Denied vomiting. Denied any sick contacts or recent travel. Upon evaluation at ED, blood work did not show any leukocytosis. Hemoglobin hematocrit were stable. Electrolytes were normal. BUN was elevated to 25 and creatinine 1.7. Urinalysis was negative. CT of the abdomen and pelvis showed hiatal hernia with distal esophagitis. No evidence of bowel obstruction. No active inflammatory process. She was given IV hydration. She was then admitted for evaluation of renal insufficiency and abdominal pain. She was placed on n.p.o. She was given slow IV hydration. Blood glucose was monitored and was placed on sliding scale. She was initially given Pepcid. She was given Protonix for GI protection. TSH was noted to be 0.2. There was no history of thyroid disease. On 04/17/2020, she underwent upper endoscopy. Findings showed distal esophagitis without any obvious ulceration or bleeding. In the stomach, there was diffuse gastritis. Patient tolerated procedure without any complication. Diet was resumed. She was given H2 blockers. Serum creatinine lowered to 1.4. Renal ultrasound showed bilateral cortical thinning and increased cortical echogenicity reflecting medical renal disease. Increased cortical atrophy echogenicity reflecting medical renal disease. No obstructive uropathy. Patient was eventually cleared for discharge home. FINAL DIAGNOSES: Acute kidney injury most likely acute on chronic renal failure Diabetes mellitus [id number] Hypertension History of dementia Possible UTI Abdominal pain status post EGD Hiatal hernia Esophagitis History of CVA DISPOSITION: Patient was discharged home. DISCHARGE MEDICATIONS: Refer to Discharge Medication List. DISCHARGE INSTRUCTIONS: Follow-up in a week. I have been assigned to complete a discharge summary on this account, I was not involved with the patient's management.--CHARLOTTE Mcfadden Jacqueline Robles NP Apr 21, 2020 14:30
--- NOTE | 2020-04-22 13:45 | Geriatric Medicine Prog Note ---
DATE: 04/19/2020 SUBJECTIVE: She complained of to Dr. Rasheed. The patient upper GI endoscopy . OBJECTIVE: VITAL SIGNS: Stable. glucose 140. ASSESSMENT: 1. Diabetes mellitus, stable. 2. . 3. Esophagitis . Manav Reyes M.D. DR: MARY JOB#: [id number] CC:
== END 2020-04-19 11:41 | disposition home or self-care (01) | DRG 684 ==
LOC: EDBD 15:08 → EMR 15:15 → 4E 16:55 → EDBEDREQ 18:12
PROC: 0DB78ZX Excision of Stomach, Pylorus, Via Natural or Artificial Opening Endoscopic, Diagnostic (ICD-10-PCS; principal; 2020-04-17 11:44)
DX: N17.9 Acute kidney failure, unspecified (principal); K29.70 Gastritis, unspecified, without bleeding; K20.8 Other esophagitis; I12.9 Hypertensive chronic kidney disease with stage 1 through stage 4 chronic kidney disease, or unspecified chronic kidney disease; E11.22 Type 2 diabetes mellitus with diabetic chronic kidney disease; E11.65 Type 2 diabetes mellitus with hyperglycemia; N18.9 Chronic kidney disease, unspecified; Z79.4 Long term (current) use of insulin; Z86.73 Personal history of transient ischemic attack (TIA), and cerebral infarction without residual deficits; F03.90 Unspecified dementia, unspecified severity, without behavioral disturbance, psychotic disturbance, mood disturbance, and anxiety; K44.9 Diaphragmatic hernia without obstruction or gangrene
CPT/HCPCS: 36415; 74176; 76770; 80048; 80053; 80061; 81003; 82043; 82150; 82550; 82962; 83036; 83690; 83735; 84100; 84300; 84439; 84443; 84481; 84484; 84550; 85025; 85651; 86140; 87086; 89050; 94003; 94150; 96374; 96375; 99285; J1815; J2405; U0002